=== PATIENT | female | born 1950 | race Caucasian/White ===

== ENCOUNTER 2020-12-30 14:33 | Emergency (ER) | payer MEDICARE, OTHER ==
[~2020-12-30] VITALS: Ht 160 cm; Wt 98.0 kg
[~2020-12-30 14:33] MED LIST: ALPRAZOLAM1 MG PO; ATIVAN1 MG PO; CALCIUM600 MG PO; CANE1 EACH MISC; CEPHALEXIN250 M1 PO; CYCLOBENZAPRINE10 MG; DEXAMETHASONE4 MG PO; HYDROCHLOROTHIA25 MG; HYDROCODON-ACE1 EA10 PO; HYDROCODON-ACE1 EAC8; IBUPROFEN600 MG PO; KEFLEX500 MG PO; LISINOPRIL20 MG PO; LISINOPRIL40 MG PO; MAGNESIUM400 MG PO; METFORMIN HCL500 M1 PO; METOPROLOL SUCC25 MG PO; NYAMYC15 GM TOP; ONDANSETRON ODT8 MG PO; OXYCODONE HCL5 MG PO; POTASSIUM CHLO10 MEQ PO; TYLENOL EXTRA500 MG PO; VITAMIN D5000 UNIT PO
== END 2020-12-30 16:34 | disposition home or self-care (01) ==
LOC: ED 14:33
DX: M79.605 Pain in left leg (principal); E11.9 Type 2 diabetes mellitus without complications; I10 Essential (primary) hypertension; Z87.891 Personal history of nicotine dependence; Z79.899 Other long term (current) drug therapy
CPT/HCPCS: 93971; 99284-25

== ENCOUNTER 2022-10-20 13:36 | Emergency (ER) | payer MEDICARE, OTHER ==
[~2022-10-20] VITALS: Ht 160 cm; Wt 105.4 kg
--- OUTSIDE RECORDS SUMMARY | 2022-10-20 13:40 | XMS ---
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 Chris VISIT COUNT (12 MO.) Brian Daugherty TOTAL 1 NOTE: Visits indicate total known visits. ED/UCC VISIT TRACKING (12 MO.) 10/20/2022 13:[address] [facility] TYPE: Emergency COMPLAINT: - R EYE BLURRY INPATIENT VISIT TRACKING (12 MO.) No inpatient visits to display in this time frame [email or web address]
== END 2022-10-20 18:15 | disposition home or self-care (01) ==
LOC: ED 13:36
DX: H53.8 Other visual disturbances (principal); E11.9 Type 2 diabetes mellitus without complications; I10 Essential (primary) hypertension; Z87.891 Personal history of nicotine dependence; Z79.899 Other long term (current) drug therapy; Z91.018 Allergy to other foods
CPT/HCPCS: 36415; 70450; 70496; 70498; 80053; 85025; 99284-25; A9270; Q9967